=== PATIENT | female | born 1955 | race African-American/Black ===

== ENCOUNTER 2022-05-23 14:44 | Emergency (ER) | payer MEDICAID, SELFPAY ==
[2022-05-23] VITALS (8 sets, daily range): BP systolic 150–185; BP diastolic 65–113; PULSE 61–79; RESP 11–17; TEMP 37.2; O2SAT 100
--- NOTE | 2022-05-23 14:59 | ECG_ITS ---
Measurements Intervals [place] Rate: 68 P: 52 UT: 156 QRS: 48 QRSD: 85 T: 60 QT: 392 QTc: 419 Interpretive Statements SINUS RHYTHM VOLTAGE CRITERIA FOR LVH BORDERLINE ECG NO PREVIOUS ECG AVAILABLE FOR COMPARISON Electronically Signed On 05-23-2022 16:19:47 CDT by Jozef Kramer D.O.
[2022-05-23 15:36] LABS: Alanine Aminotransferase 15 U/L (6-35); Albumin Level 4.8 g/dL (3.5-5.1); Alkaline Phosphatase 54 U/L (38-126); Anion Gap 12 mmol/L (8-16); Aspartate Amino Transferase 24 U/L (14-36); Bilirubin,Total 0.5 mg/dL (0.2-1.3); Blood Urea Nitrogen 15 mg/dL (7-17); Calcium 9.7 mg/dL (8.4-10.2); Carbon Dioxide 28 mmol/L (22-30); Chloride 91 mmol/L (98-107); Estimated CRCL calculation 56 ml/min; Estimated Glomerular Filt Rate > 60; Glucose 107 mg/dL (65-110); Potassium 4.1 mmol/L (3.4-5.0); Sodium 131 mmol/L (137-145)
[2022-05-23 15:41] LABS: Basophils Percent Auto 0.3 % (0.2-1.2); Eosinophils Absolute Auto 0.1 K/mm3 (0-0.3); Eosinophils Percent Auto 1.7 % (0-4.4); Hematocrit 34.1 % (37.0-47.0); Hemoglobin 11.3 g/dL (12.0-15.0); Immature Granulocyte Absolute 0.02 K/mm3 (0.00-0.031); Immature Granulocyte Percent A 0.3 % (0-0.5); Lymphocytes Absolute Auto 0.86 K/mm3 (0.9-3.2); Lymphocytes Percent Auto 14.9 % (18.3-44.2); Mean Corpuscular HGB Conc 33.1 g/dl (32-36); Mean Corpuscular Hemoglobin 31.8 pg (26-34); Mean Corpuscular Volume 96.1 fl (80-100); Mean Platelet Volume 8.7 fl (7.4-10.4); Monocytes Absolute Auto 0.6 K/mm3 (0.1-0.6); Monocytes Percent Auto 9.5 % (2.6-8.5); Neutrophils Absolute Auto 4.2 K/mm3 (1.3-6.7); Neutrophils Percent Auto 73.3 % (45.5-73.1); Platelet Count Result 277 k/mm3 (150-375); Red Blood Count 3.55 M/mm3 (4.2-5.4); Red Cell Distribution Width 12.4 % (11.5-14.5); White Blood Count 5.8 K/mm3 (4.5-10.0)
[2022-05-23] MEDS: SODIUM CHLORIDE 0.9% IV 1,000 ML 999 ML IV CONT (17:47)
[2022-05-23 17:56] LABS: Appearance Urine Slightly Cloudy (Clear); Bilirubin Urine 2+ (Negative); Blood Urine Negative (Negative); Color Urine Yellow (Yellow); Glucose Urine UA Negative (Negative); Ketones Urine 1+ mg/dL (Negative); Leukocyte Esterase Ur Negative LEU/UL (Negative); Nitrate Urine Negative (Negative); Protein Urine 2+ mg/dL (Negative); Specific Grav Ur >= 1.030 (1.001-1.035); Urobilinogen Urine 0.2 mg/dL (<2.0); pH Urine 5.5 (5.0-9.0)
[2022-05-23 18:12] LABS: Bacteria Urine Trace /hpf; Hyaline Casts Urine 30-49 /lpf; Mucus Urine Heavy /lpf; Squamous Epithelial Cell Urine Many /hpf (Few)
--- NOTE | 2022-05-23 18:17 | ED.GENADULT ---
HPI - General Adult General Chief complaint: Syncope Stated complaint: bp high, syncopal at [facility] Time Seen by Provider: 05/23/22 15:40 History of Present Illness HPI narrative: Patient is a 66-year-old female who presents ER status post syncope. Patient reports she has had in the past When she passed out. She reports that on days when she is riding the bus she does not eat or drink so she does not get stuck in a position where she cannot use restroom. Denies chest pain or chest pressure. No racing the heart. She did feel warm before she passed out. Denies urinary frequency urgency or dysuria. No abdominal discomfort or diarrhea. Related Data Allergies Allergy/AdvReac Type Severity Reaction Status Date / Time Penicillins Allergy Unknown Verified 06/19/15 22:16 Review of Systems Review of Systems: All systems reviewed & are unremarkable except as noted in HPI and below Constitutional: Constitutional: Denies chills, Denies fatigue and Denies fever(s) ENT: Denies nasal congestion and Denies sore throat Cardiovascular: Cardiovascular: Denies chest pain, Denies rapid heart rate and Denies radiating jaw, neck or arm pain Respiratory: Respiratory: Denies cough and Denies dyspnea Gastrointestinal: Gastrointestinal: Denies nausea and Denies vomiting Musculoskeletal: Musculoskeletal: Denies back pain and Denies arthralgias Neurologic: Reports syncope, Denies headache(s), Denies focal weakness and Denies numbness PMFSH Past Medical History Medical History (Updated 05/23/22 @ 18:29 by Murtaza Gillis MD) Hypertension Surgical History Surgical History (Updated 05/23/22 @ 18:29 by Murtaza Gillis MD) No history of previous surgery Social History Social History (Updated 05/23/22 @ 18:29 by Murtaza Gillis MD) Smoking status: Never smoker Exam Narrative: GENERAL: Well-appearing, well-nourished, and in no acute distress. HEAD: Normocephalic, atraumatic. EYES: PERRL and EOMI. ENT: Mucous membranes moist. CHEST: Clear to auscultation. No respiratory distress. HEART: Regular rate and rhythm. Normal peripheral pulses. ABDOMEN: Soft, nontender, nondistended. EXTREMITIES: Normal range of motion. No edema. NEURO: Clear speech, no facial droop, no expressive aphasia. Alert and oriented x3. PSYCH: Normal mood and affect. Course Course Emergency Course: Patient resting comfortably. Hydrated. She is eating. She feels improved. Discharge home. Vital Signs Vital signs: Vital Signs Temperature 98.9 F 05/23/22 15:03 Pulse Rate 79 05/23/22 15:03 Respiratory Rate 17 05/23/22 15:03 Blood Pressure 185/99 H 05/23/22 15:03 Pulse Oximetry 100 05/23/22 15:03 Oxygen Delivery Room Air 05/23/22 15:03 Temperature 98.9 F 05/23/22 15:03 Pulse Rate 70 05/23/22 17:15 Respiratory Rate 15 05/23/22 17:15 Blood Pressure 174/105 H 05/23/22 16:46 Pulse Oximetry 100 05/23/22 15:03 Oxygen Delivery Room Air 05/23/22 15:03 Medical Decision Making Vital Signs Vital Signs: Vital Signs Temperature 98.9 F 05/23/22 15:03 Pulse Rate 79 05/23/22 15:03 Respiratory Rate 17 05/23/22 15:03 Blood Pressure 185/99 H 05/23/22 15:03 Pulse Oximetry 100 05/23/22 15:03 Oxygen Delivery Room Air 05/23/22 15:03 Temperature 98.9 F 05/23/22 15:03 Pulse Rate 70 05/23/22 17:15 Respiratory Rate 15 05/23/22 17:15 Blood Pressure 174/105 H 05/23/22 16:46 Pulse Oximetry 100 05/23/22 15:03 Oxygen Delivery Room Air 05/23/22 15:03 Lab Data Result diagrams: 05/23/22 15:16 05/23/22 15:16 Labs: Lab Results 05/23/22 05/23/22 05/23/22 Range/Units 15:16 15:16 17:42 WBC 5.8 (4.5-10.0) K/mm3 RBC 3.55 L (4.2-5.4) M/mm3 Hgb 11.3 L (12.0-15.0) g/dL Hct 34.1 L (37.0-47.0) % MCV 96.1 (80-100) fl MCH 31.8 (26-34) pg MCHC 33.1 (32-36) g/dl RDW 12.4 (11.5-14.5) % Plt Count 277 (15
[2022-05-23 18:20] LABS: Add Urine Microscopic? YES
== END 2022-05-23 20:14 | disposition home or self-care (01) ==
PROVIDERS: Emergency Provider Emergency Medicine; PCP Physician Assistant
DX: R55 Syncope and collapse (principal); I10 Essential (primary) hypertension; R94.31 Abnormal electrocardiogram [ECG] [EKG]
CPT/HCPCS: 36415; 80053; 81001; 85025; 87086; 93005; 96360; 96361; 99284; J7030